=== PATIENT | female | born 1930 | race Caucasian/White ===

== ENCOUNTER → 2016-07-09 | Outpatient (CLI) | payer MEDICARE, MEDICAID ==
[~2016-07-09] MED LIST: ACTOS 15MG TAB15 MG PO; ACTOS15 MG PO; ACUVAIL 0.4 ML0.4 ML; ARTIFICIAL TEAR15 M7 OP; ASPIR-LOW81 MG PO; ASPIR-LOX325 MG PO; ASPIRIN 81M81 MG/TA2 PO; ASPIRIN E.C. 8181 MG PO; ATIVAN 0.50.5 MG/TAB PO; B-121000 MCG IM; CARAFATE 1GM1 G PO; CEFTIN500 MG PO; COLACE 100100 MG/CAP PO; CYANOCOBAL1000 MCG/1 IM; CYANOCOBAL1000 MCG/2 IM; DESYREL 100MG100 MG PO; DESYREL 50MG50 MG PO; DOMPERIDONE PO; DOMPERIDONE10 MG/CAP PO; FLONASEALLERGY NS; FOSAMAX 70MG TA70 MG PO; GLIPIZIDE2.5 MG PO; GLUCOPHAGE1000 MG PO; GLUCOTROL 5M5 MG/TAB PO; GLUCOTROL XL2.5 MG PO; GLUCOTROL XL5 MG/TAB PO; HCTZ 25MG TAB25 MG PO; KLOR-CON M2020 MEQ PO; KLOR-CON20 MEQ PO; LASIX 20MG TABL20 MG PO; LEVOTHYROXIN0.112 MG PO; LEVOXYL0.1 MG PO; LEVOXYL0.125 MG PO; LISINOPRIL20 MG PO; MAALOX MAX + ANT1 ML PO; MACROBID 1100 MG/CAP PO; MILK OF MA400 MG/5 M PO; MILK OF MA400 MG/52 PO; MIRALAX 17GM PK1 PKT PO; MIRALAX PA17 GM/Dose PO; MOTRIN 800800 MG/TAB PO; NEURONTIN100 MG/CAP PO; NEXIUM 40MG40 MG PO; NITROSTAT0.4 MG SL; NITROSTAT0.4 MG/TAB SL; NORCO 325 MG-101 TAB PO; NORCO 325 MG-51 TAB PO; NORCO 325 MG-7.1 TAB PO; OCUFLOX 10 ML10 ML OP; OMEPRAZOLE D/R20 MG PO; OMNICEF 300MG300 MG PO; PEPCID 20MG TAB20 MG PO; PERI-COLACE 501 TAB PO; PHENERGAN W/CO120 ML PO; PRAVACHOL 40MG40 MG PO; PRAVASTATIN40 MG PO; PREDNISONE; PRILOSEC 20MG20 MG PO; PROTONIX 40MG T40 MG PO; REGLAN 10MG10 MG/TAB PO; RISPERDAL 0.20.25 MG PO; SENNA8.6 MG PO; SERTRALINE HCL50 MG PO; SYNTHROID0.1 MG/TAB PO; SYNTHROID0.112 MG/T PO; SYNTHROID0.125 MG/T PO; TEARS NATURALE15 M1 OP; TIROSINT75 MCG PO; TRADJENTA5 MG PO; VESICARE 5MG5 MG PO; VICODIN 5/5001 UDTAB PO; VITAMIN D1000 IU PO; VITAMIN D31000 I1 PO; VITAMIN D3400 IU PO; ZOFRAN 4MG T4 MG/TAB PO; ZOLOFT 25MG25 MG PO; ZOLOFT 50MG50 MG PO; ZOLOFT50 MG PO; ZOLPIDEM5 MG PO
[2016-07-09 17:42] LABS: CALCIUM 8.8 mg/dL (8.4-10.2); CREATININE, serum 1.32 mg/dL (0.52-1.25); POTASSIUM 4.1 mmol/L (3.4-5.0)
== END ==
LOC: ZCOL.LAB 17:01 → COL.LAB 17:01
PROVIDERS: Internal Medicine
DX: F32.89 Other specified depressive episodes (principal)

== ENCOUNTER → 2016-07-25 | Outpatient (CLI) | payer MEDICARE, MEDICAID ==
[2016-07-25 15:02] LABS: CALCIUM 8.9 mg/dL (8.4-10.2); CREATININE, serum 1.47 mg/dL (0.52-1.25); POTASSIUM 4.2 mmol/L (3.4-5.0)
== END ==
LOC: ZCOL.LAB 14:43
PROVIDERS: Internal Medicine
DX: E11.9 Type 2 diabetes mellitus without complications (principal)

== ENCOUNTER → 2016-08-14 | Outpatient (CLI) | payer MEDICARE, MEDICAID | LOC: MC.RAD 15:08 | DX: Z12.31 Encounter for screening mammogram for malignant neoplasm of breast (principal); Z85.3 Personal history of malignant neoplasm of breast; Z90.12 Acquired absence of left breast and nipple; Z80.3 Family history of malignant neoplasm of breast | CPT/HCPCS: G0202 ==

== ENCOUNTER 2016-08-21 15:22 | Emergency (ER) | payer MEDICARE, MEDICAID ==
[2009-05-05 12:18] VITALS: BP 118/64
[~2016-08-21] VITALS: Ht 165.1 cm; Wt 75.0 kg
[2016-08-21 15:24] VITALS: TEMP 99
[2016-08-21 16:44] LABS: BASO % 0.6 % (0.0-2.0); EOS # 0.2 (0.0-0.7); EOS % 3.4 % (0-4.0); GRAN # 2.9 (1.4-6.5); GRAN % 54.3 % (42.2-75.2); HEMATOCRIT 31.3 % (37.0-47.0); HEMOGLOBIN 10.4 g/dl (12.5-16.0); LYMPH # 1.6 (1.2-3.4); LYMPH % 31.2 % (20.0-51.0); MEAN CELL VOLUME 98 fl (80.0-100.0); MEAN CORPUSCULAR HEMOGLOBIN 33 pg (27.0-31.0); MEAN CORPUSCULAR HGB CONC 33 g/dl (33.0-37.0); MEAN PLATELET VOLUME 9.1 fl (7.4-10.4); MONO # 0.5 (0.1-0.6); MONO % 10.1 % (1.7-9.3); PLATELET COUNT 227 K/mm3 (130-400); RED BLOOD COUNT 3.19 M/mm3 (4.10-5.30); REDCELL DISTRIBUTION WIDTH-CV 12.2 % (11.5-14.5); WHITE BLOOD COUNT 5.3 K/mm3 (4.8-10.8)
[2016-08-21 16:48] LABS: INR 1.1 (0.8-3.0); PROTHROMBIN TIME 11.8 SECONDS (9.7-12.8)
[2016-08-21 16:58] LABS: ADJUSTED CALCIUM 9.5 mg/dL (8.4-10.2); ALANINE AMINOTRANSFERASE 21 U/L (9-52); ALBUMIN 3.5 gm/dL (3.5-5.0); ALKALINE PHOSPHATASE 109 U/L (50-136); ANION GAP 10 mmol/L (7-16); BILIRUBIN,TOTAL 0.6 mg/dL (0.0-1.0); BLOOD UREA NITROGEN 31 mg/dL (7-17); CALCIUM 9.1 mg/dL (8.4-10.2); CARBON DIOXIDE 26 mmol/L (22-30); CHLORIDE 102 mmol/L (98-107); CREATININE, serum 1.42 mg/dL (0.52-1.25); GLUCOSE 176 mg/dL (74-106); LIPASE 12 U/L (23-300); POTASSIUM 4.4 mmol/L (3.4-5.0); SODIUM 137 mmol/L (137-145); TOTAL PROTEIN 6.4 gm/dL (6.4-8.2)
[2016-08-21 16:59] LABS: C-REACTIVE PROTEIN < 0.5 mg/dL (0.0-0.9)
[2016-08-21 17:07] LABS: TROPONIN-I 0.012 ng/mL (0.000-0.034)
[2016-08-21 18:00] VITALS: BP 128/87; PULSE 84
== END 2016-08-21 18:06 | disposition home or self-care (01) ==
LOC: COL.ER 15:22
PROVIDERS: Emergency Medicine
DX: R07.9 Chest pain, unspecified (principal); M79.605 Pain in left leg; M79.604 Pain in right leg; I48.91 Unspecified atrial fibrillation; G89.29 Other chronic pain

== ENCOUNTER → 2016-08-23 | Outpatient (CLI) | payer MEDICARE, MEDICAID | LOC: ZCOL.LAB 20:07 | DX: D51.8 Other vitamin B12 deficiency anemias (principal) ==

== ENCOUNTER → 2016-08-29 | Outpatient (CLI) | payer MEDICARE, MEDICAID | LOC: ZCOL.LAB 10:40 | PROVIDERS: Internal Medicine | DX: E78.4 Other hyperlipidemia (principal) ==

== ENCOUNTER → 2016-09-03 | Outpatient (CLI) | payer MEDICARE, MEDICAID ==
[2016-09-03 22:06] LABS: PH 5 (5-8); SQUAMOUS EPITHELIAL 0-2 /hpf; URINE APPEARANCE Hazy; URINE BACTERIA Rare /hpf; URINE BILIRUBIN Negative (NEGATIVE); URINE BLOOD Negative (NEGATIVE); URINE COLOR Yellow; URINE GLUCOSE Negative (NEGATIVE); URINE KETONE Negative (NEGATIVE); URINE WBC 20-50 /hpf
== END ==
LOC: ZCOL.LAB 19:30
PROVIDERS: Internal Medicine
DX: N39.0 Urinary tract infection, site not specified (principal)

== ENCOUNTER → 2016-09-04 | Outpatient (CLI) | payer MEDICARE, MEDICAID | LOC: ZCOL.LAB 21:30 | DX: N39.0 Urinary tract infection, site not specified (principal) ==

== ENCOUNTER → 2016-09-09 | Outpatient (CLI) | payer MEDICARE, MEDICAID ==
[2016-09-09 16:13] LABS: POTASSIUM 4.3 mmol/L (3.4-5.0)
== END ==
LOC: ZCOL.LAB 15:34
PROVIDERS: Internal Medicine
DX: N18.9 Chronic kidney disease, unspecified (principal)

== ENCOUNTER → 2016-09-18 | Outpatient (CLI) | payer MEDICARE, MEDICAID | LOC: ZCOL.LAB 11:53 | DX: E16.1 Other hypoglycemia (principal) ==

== ENCOUNTER → 2016-12-10 | Outpatient (CLI) | payer MEDICARE, MEDICAID ==
[2016-12-10 20:49] LABS: POTASSIUM 4.2 mmol/L (3.4-5.0)
== END ==
LOC: ZCOL.LAB 20:02
PROVIDERS: Internal Medicine
DX: E11.9 Type 2 diabetes mellitus without complications (principal)

== ENCOUNTER → 2016-12-17 | Outpatient (CLI) | payer MEDICARE, MEDICAID | LOC: ZCOL.LAB 04:00 | DX: E11.9 Type 2 diabetes mellitus without complications (principal) ==

== ENCOUNTER → 2017-02-12 | Outpatient (CLI) | payer MEDICARE, MEDICAID ==
[2017-02-12 04:34] LABS: CALCIUM 8.8 mg/dL (8.4-10.2); CREATININE, serum 1.71 mg/dL (0.52-1.25); POTASSIUM 4.3 mmol/L (3.4-5.0)
== END ==
LOC: ZCOL.LAB 04:00
PROVIDERS: Internal Medicine
DX: N18.9 Chronic kidney disease, unspecified (principal)

== ENCOUNTER → 2017-03-03 | Outpatient (CLI) | payer MEDICARE, MEDICAID ==
[2017-03-03 11:53] LABS: PH 5 (5-8); SQUAMOUS EPITHELIAL 0-2 /hpf; URINE APPEARANCE Hazy; URINE BACTERIA Rare /hpf; URINE BILIRUBIN Negative (NEGATIVE); URINE BLOOD Negative (NEGATIVE); URINE COLOR Yellow; URINE GLUCOSE Negative (NEGATIVE); URINE KETONE Negative (NEGATIVE); URINE RBC 0-2 /hpf; URINE UROBILINOGEN Negative (NEGATIVE); URINE WBC >50 /hpf
== END ==
LOC: ZCOL.LAB 11:34
PROVIDERS: Internal Medicine
DX: E11.9 Type 2 diabetes mellitus without complications (principal); R44.3 Hallucinations, unspecified

== ENCOUNTER → 2017-03-12 | Outpatient (CLI) | payer MEDICARE, MEDICAID ==
[~2017-03-12] MED LIST changes: +CORRECTIVE LAXAT5 MG PO; +CYANOCOBAL1000 MCG/M IM; +DESYREL DIVIDO150 M1 PO; +FENTANYL 25 MCG TD; +FERROUS SU325 MG/TAB PO; +GENTLE LAXATIVE5 MG PO; +KENALOG DENTAL P5 GM DT; +LEXAPRO 10MG10 MG PO; +LEXAPRO 5MG5 MG PO; +LYRICA 50MG CAP50 MG PO; +MULTI VITAMINS1 TAB PO; +MYRBETR25MG PO; +NITRO-DUR0.4 MG/PAT TD; +PLAVIX 75MG TAB75 MG PO; +PRIL40 PO; +REFRESH TEARS 330 ML OP; +ROLAIDS 675 MG-1 CT2 PO; +SENOKOT S 50 MG1 TAB PO; +TYLENOL 325MG325 MG PO; +VITAMIN C500 MG PO
== END ==
LOC: ZCOL.LAB 12:35
PROVIDERS: Internal Medicine
DX: F32.9 Major depressive disorder, single episode, unspecified (principal)

== ENCOUNTER → 2017-03-14 | Outpatient (CLI) | payer MEDICARE, MEDICAID ==
[~2017-03-14] MED LIST changes: -CORRECTIVE LAXAT5 MG PO; -CYANOCOBAL1000 MCG/M IM; -DESYREL DIVIDO150 M1 PO; -FENTANYL 25 MCG TD; -FERROUS SU325 MG/TAB PO; -GENTLE LAXATIVE5 MG PO; -KENALOG DENTAL P5 GM DT; -LEXAPRO 10MG10 MG PO; -LEXAPRO 5MG5 MG PO; -LYRICA 50MG CAP50 MG PO; -MULTI VITAMINS1 TAB PO; -MYRBETR25MG PO; -NITRO-DUR0.4 MG/PAT TD; -PLAVIX 75MG TAB75 MG PO; -PRIL40 PO; -REFRESH TEARS 330 ML OP; -ROLAIDS 675 MG-1 CT2 PO; -SENOKOT S 50 MG1 TAB PO; -TYLENOL 325MG325 MG PO; -VITAMIN C500 MG PO
== END ==
LOC: ZCOL.LAB 15:11
DX: Z01.89 Encounter for other specified special examinations (principal)

== ENCOUNTER → 2017-03-30 | Outpatient (CLI) | payer MEDICARE, MEDICAID ==
[2017-03-30 08:47] LABS: BASO % 0.7 % (0.0-2.0); EOS # 0.4 (0.0-0.7); EOS % 6.3 % (0-4.0); GRAN # 2.7 (1.4-6.5); HEMATOCRIT 30.2 % (37.0-47.0); HEMOGLOBIN 9.8 g/dl (12.5-16.0); LYMPH # 1.9 (1.2-3.4); LYMPH % 33.5 % (20.0-51.0); MEAN CELL VOLUME 100 fl (80.0-100.0); MEAN CORPUSCULAR HEMOGLOBIN 32 pg (27.0-31.0); MEAN CORPUSCULAR HGB CONC 33 g/dl (33.0-37.0); MEAN PLATELET VOLUME 10.2 fl (7.4-10.4); MONO # 0.6 (0.1-0.6); MONO % 10.3 % (1.7-9.3); PLATELET COUNT 223 K/mm3 (130-400); RED BLOOD COUNT 3.02 M/mm3 (4.10-5.30); REDCELL DISTRIBUTION WIDTH-CV 13.5 % (11.5-14.5); WHITE BLOOD COUNT 5.6 K/mm3 (4.8-10.8)
[2017-03-30 08:50] LABS: POTASSIUM 4.4 mmol/L (3.4-5.0)
[2017-03-30 09:21] LABS: THYROID STIMULATING HORMONE 1.29 uIU/mL (0.465-4.680)
== END ==
LOC: ZCOL.LAB 08:25
PROVIDERS: Internal Medicine
DX: N18.9 Chronic kidney disease, unspecified (principal); E03.9 Hypothyroidism, unspecified; I10 Essential (primary) hypertension

== ENCOUNTER → 2017-05-02 | Outpatient (CLI) | payer MEDICARE, MEDICAID | LOC: ZCOL.LAB 05:18 | DX: Z01.89 Encounter for other specified special examinations (principal) ==

== ENCOUNTER → 2017-05-02 | Outpatient (REF) ==
[2017-05-02 06:43] LABS: COLLECTION METHOD CLEAN CATCH
[2017-05-02 06:58] LABS: MUCOUS Present /lpf; PH 5 (5-8); URINE APPEARANCE Hazy; URINE BACTERIA None Seen /hpf; URINE BILIRUBIN Negative (NEGATIVE); URINE BLOOD 1+ (NEGATIVE); URINE COLOR Yellow; URINE GLUCOSE Negative (NEGATIVE); URINE KETONE Negative (NEGATIVE); URINE LEUKOCYTE ESTERASE 1+ (NEGATIVE); URINE PROTEIN(semi-quant) Negative (NEGATIVE); URINE UROBILINOGEN Negative (NEGATIVE)
== END ==
LOC: ZCOL.LAB 06:35
PROVIDERS: Internal Medicine
DX: Z01.89 Encounter for other specified special examinations (principal)

== ENCOUNTER → 2017-06-09 | Outpatient (CLI) | payer MEDICARE, MEDICAID ==
[~2017-06-09] MED LIST changes: +DESYREL DIVIDO150 M1 PO; +LEXAPRO 10MG10 MG PO; +PRIL40 PO
[2017-06-09 03:51] LABS: POTASSIUM 4.4 mmol/L (3.4-5.0)
== END ==
LOC: ZCOL.LAB 03:35
PROVIDERS: Internal Medicine
DX: N18.9 Chronic kidney disease, unspecified (principal)

== ENCOUNTER → 2017-06-11 | Outpatient (CLI) | payer MEDICARE, MEDICAID ==
[2017-06-11 20:23] LABS: HEMATOCRIT 33.7 % (37.0-47.0); HEMOGLOBIN 10.6 g/dl (12.5-16.0)
== END ==
LOC: ZCOL.LAB 15:53
PROVIDERS: Internal Medicine
DX: D55.1 Anemia due to other disorders of glutathione metabolism (principal)

== ENCOUNTER → 2017-07-28 | Outpatient (CLI) | payer MEDICARE, MEDICAID | LOC: ZCOL.LAB 11:59 | DX: E11.9 Type 2 diabetes mellitus without complications (principal) ==

== ENCOUNTER → 2017-08-06 | Outpatient (CLI) | payer MEDICARE, MEDICAID ==
[2017-08-06 04:00] LABS: BASO # 0.1 (0.0-0.2); EOS # 0.3 (0.0-0.7); EOS % 5.3 % (0-4.0); GRAN # 2.9 (1.4-6.5); GRAN % 57.4 % (42.2-75.2); LYMPH # 1.3 (1.2-3.4); LYMPH % 24.9 % (20.0-51.0); MEAN CELL VOLUME 102 fl (80.0-100.0); MEAN CORPUSCULAR HGB CONC 32 g/dl (33.0-37.0); MEAN PLATELET VOLUME 9.5 fl (7.4-10.4); MONO # 0.6 (0.1-0.6); PLATELET COUNT 243 K/mm3 (130-400); RED BLOOD COUNT 3.07 M/mm3 (4.10-5.30); REDCELL DISTRIBUTION WIDTH-CV 13.2 % (11.5-14.5)
[2017-08-06 04:02] LABS: HEMATOCRIT 31.4 % (37.0-47.0); HEMOGLOBIN 9.9 g/dl (12.5-16.0); MEAN CORPUSCULAR HEMOGLOBIN 32 pg (27.0-31.0)
[2017-08-06 04:10] LABS: CALCIUM 8.8 mg/dL (8.4-10.2); CREATININE, serum 1.59 mg/dL (0.52-1.25); POTASSIUM 4.9 mmol/L (3.4-5.0)
== END ==
LOC: ZCOL.LAB 01:31
PROVIDERS: Internal Medicine
DX: E11.9 Type 2 diabetes mellitus without complications (principal); R79.89 Other specified abnormal findings of blood chemistry

== ENCOUNTER → 2017-08-24 | Outpatient (REF) | LOC: ZCOL.LAB 16:15 | DX: J11.1 Influenza due to unidentified influenza virus with other respiratory manifestations (principal) ==

== ENCOUNTER → 2017-08-31 | Outpatient (REF) ==
[2017-08-31 07:08] LABS: CHOLESTEROL RISK RATIO 3.3
== END ==
LOC: ZCOL.LAB 06:49
PROVIDERS: Internal Medicine
DX: E78.5 Hyperlipidemia, unspecified (principal)

== ENCOUNTER 2017-09-12 16:49 | Emergency (ER) | payer MEDICARE, MEDICAID ==
[2009-05-05 12:18] VITALS: BP 118/64
[~2017-09-12] VITALS: Ht 144.8 cm; Wt 54.5 kg
[2017-09-12 16:51] VITALS: BP 147/74; PULSE 66; TEMP 97.1
[2017-09-12 17:26] LABS: BASO # 0.1 (0.0-0.2); EOS # 0.4 (0.0-0.7); EOS % 7.2 % (0-4.0); GRAN # 3.6 (1.4-6.5); GRAN % 60.4 % (42.2-75.2); LYMPH # 1.3 (1.2-3.4); LYMPH % 21.6 % (20.0-51.0); MEAN CELL VOLUME 99 fl (80.0-100.0); MEAN CORPUSCULAR HGB CONC 33 g/dl (33.0-37.0); MEAN PLATELET VOLUME 9.2 fl (7.4-10.4); MONO # 0.6 (0.1-0.6); MONO % 9.5 % (1.7-9.3); PLATELET COUNT 229 K/mm3 (130-400); RED BLOOD COUNT 3.09 M/mm3 (4.10-5.30); REDCELL DISTRIBUTION WIDTH-CV 13.2 % (11.5-14.5)
[2017-09-12 17:27] LABS: HEMATOCRIT 30.6 % (37.0-47.0); HEMOGLOBIN 10.1 g/dl (12.5-16.0); MEAN CORPUSCULAR HEMOGLOBIN 33 pg (27.0-31.0)
[2017-09-12 17:38] LABS: ALBUMIN 3.7 gm/dL (3.5-5.0); BILIRUBIN,TOTAL 0.2 mg/dL (0.0-1.0); C-REACTIVE PROTEIN 2.3 mg/dL (0.0-0.9); CALCIUM 8.7 mg/dL (8.4-10.2); CREATININE, serum 1.91 mg/dL (0.52-1.25); POTASSIUM 4.7 mmol/L (3.4-5.0); TOTAL PROTEIN 6.7 gm/dL (6.4-8.2)
== END 2017-09-12 20:00 | disposition home or self-care (01) ==
LOC: COL.ER 16:49
PROVIDERS: Family Medicine
DX: S40.012A Contusion of left shoulder, initial encounter (principal); S00.93XA Contusion of unspecified part of head, initial encounter; M17.12 Unilateral primary osteoarthritis, left knee; R40.2412 Glasgow coma scale score 13-15, at arrival to emergency department; Z85.3 Personal history of malignant neoplasm of breast; Z87.09 Personal history of other diseases of the respiratory system; Z79.84 Long term (current) use of oral hypoglycemic drugs; W19.XXXA Unspecified fall, initial encounter; Y92.129 Unspecified place in nursing home as the place of occurrence of the external cause
CPT/HCPCS: J2405; J3010; J7030

== ENCOUNTER → 2017-09-18 | Outpatient (REF) ==
[2017-09-18 13:49] LABS: CALCIUM 8.2 mg/dL (8.4-10.2); CREATININE, serum 1.61 mg/dL (0.52-1.25); MAGNESIUM 1.8 mg/dL (1.6-2.3); POTASSIUM 4.7 mmol/L (3.4-5.0)
== END ==
LOC: ZCOL.LAB 12:48
PROVIDERS: Internal Medicine
DX: N18.9 Chronic kidney disease, unspecified (principal)

== ENCOUNTER → 2017-10-12 | Outpatient (CLI) | payer MEDICARE, MEDICAID ==
[2017-10-12 08:55] LABS: BASO # 0.1 (0.0-0.2); EOS # 0.4 (0.0-0.7); EOS % 8.6 % (0-4.0); GRAN # 2.8 (1.4-6.5); GRAN % 54.6 % (42.2-75.2); HEMATOCRIT 28.4 % (37.0-47.0); HEMOGLOBIN 9.2 g/dl (12.5-16.0); LYMPH # 1.2 (1.2-3.4); LYMPH % 23.1 % (20.0-51.0); MEAN CELL VOLUME 100 fl (80.0-100.0); MEAN CORPUSCULAR HEMOGLOBIN 32 pg (27.0-31.0); MEAN CORPUSCULAR HGB CONC 32 g/dl (33.0-37.0); MEAN PLATELET VOLUME 9.6 fl (7.4-10.4); MONO # 0.6 (0.1-0.6); MONO % 12.5 % (1.7-9.3); PLATELET COUNT 229 K/mm3 (130-400); RED BLOOD COUNT 2.85 M/mm3 (4.10-5.30); REDCELL DISTRIBUTION WIDTH-CV 13.8 % (11.5-14.5)
== END ==
LOC: ZCOL.LAB 08:45
PROVIDERS: Internal Medicine
DX: N18.9 Chronic kidney disease, unspecified (principal)

== ENCOUNTER → 2017-10-12 | Outpatient (CLI) | payer MEDICARE, MEDICAID | LOC: ZCOL.LAB 06:45 | DX: N18.9 Chronic kidney disease, unspecified (principal) ==

== ENCOUNTER → 2017-11-27 | Outpatient (REF) ==
[2017-11-27 18:03] LABS: COLLECTION METHOD CLEAN CATCH
[2017-11-27 18:13] LABS: PH 5 (5-8); SQUAMOUS EPITHELIAL 0-2 /hpf; URINE APPEARANCE Hazy; URINE BACTERIA Rare /hpf; URINE BILIRUBIN Negative (NEGATIVE); URINE BLOOD 1+ (NEGATIVE); URINE COLOR Yellow; URINE GLUCOSE Negative (NEGATIVE); URINE KETONE Negative (NEGATIVE); URINE LEUKOCYTE ESTERASE Trace (NEGATIVE); URINE NITRATE Positive (NEGATIVE); URINE PROTEIN(semi-quant) Negative (NEGATIVE); URINE RBC 0-2 /hpf; URINE UROBILINOGEN Negative (NEGATIVE)
== END ==
LOC: ZCOL.LAB 18:00
PROVIDERS: Internal Medicine
DX: Z01.89 Encounter for other specified special examinations (principal)

== ENCOUNTER 2017-12-07 15:27 | Emergency (ER) | payer MEDICARE, MEDICAID ==
[2009-05-05 12:18] VITALS: BP 118/64
[~2017-12-07] VITALS: Ht 142.2 cm; Wt 60.0 kg
[2017-12-07 15:46] VITALS: TEMP 97.2
[2017-12-07 16:17] LABS: BASO % 0.4 % (0.0-2.0); EOS % 12.8 % (0-4.0); GRAN # 4.9 (1.4-6.5); GRAN % 63.8 % (42.2-75.2); LYMPH # 0.8 (1.2-3.4); LYMPH % 10.6 % (20.0-51.0); MEAN CELL VOLUME 98 fl (80.0-100.0); MEAN CORPUSCULAR HGB CONC 32 g/dl (33.0-37.0); MEAN PLATELET VOLUME 9.1 fl (7.4-10.4); MONO # 0.9 (0.1-0.6); MONO % 11.9 % (1.7-9.3); PLATELET COUNT 253 K/mm3 (130-400); RED BLOOD COUNT 2.95 M/mm3 (4.10-5.30); REDCELL DISTRIBUTION WIDTH-CV 13.2 % (11.5-14.5)
[2017-12-07 16:22] LABS: PROTHROMBIN TIME 11.1 SECONDS (9.7-12.8)
[2017-12-07 16:25] LABS: HEMOGLOBIN 9.3 g/dl (12.5-16.0); MEAN CORPUSCULAR HEMOGLOBIN 32 pg (27.0-31.0); PARTIAL THROMBOPLASTIN TIME 33.5 SECONDS (26.0-37.0)
[2017-12-07 16:53] LABS: ALANINE AMINOTRANSFERASE 20 U/L (9-52); ALBUMIN 2.8 gm/dL (3.5-5.0); ALKALINE PHOSPHATASE 105 U/L (50-136); ANION GAP 11 mmol/L (7-16); AST,SGOT 13 U/L (15-37); BILIRUBIN,TOTAL 0.3 mg/dL (0.0-1.0); BLOOD UREA NITROGEN 35 mg/dL (7-17); CALCIUM 8.4 mg/dL (8.4-10.2); CARBON DIOXIDE 26 mmol/L (22-30); CHLORIDE 101 mmol/L (98-107); CREATININE, serum 1.54 mg/dL (0.52-1.25); GLUCOSE 151 mg/dL (74-106); SODIUM 137 mmol/L (137-145); TOTAL PROTEIN 5.7 gm/dL (6.4-8.2)
[2017-12-07] MEDS ORDERED: ASPIRIN 81M81 MG/TA2 PO (16:58)
[2017-12-07] MEDS ORDERED: TRADJENTA5 MG PO (16:59)
[2017-12-07] MEDS ORDERED: LASIX 20MG TABL20 MG PO (16:59)
[2017-12-07] MEDS ORDERED: ZOFRAN 4MG T4 MG/TAB PO ×2 (17:01→17:20)
[2017-12-07] MEDS ORDERED: NORCO 325 MG-7.1 TAB PO (17:03)
[2017-12-07] MEDS ORDERED: FENTANYL 25 MCG TD (17:12)
[2017-12-07 17:14] LABS: TROPONIN-I < 0.012 ng/mL (0.000-0.034)
[2017-12-07] MEDS ORDERED: PRILOSEC 20MG20 MG PO (17:15)
[2017-12-07] MEDS ORDERED: LEXAPRO 5MG5 MG PO (17:15)
[2017-12-07] MEDS ORDERED: SENOKOT S 50 MG1 TAB PO (17:16)
[2017-12-07] MEDS ORDERED: ATIVAN 0.50.5 MG/TAB PO (17:17)
[2017-12-07] MEDS ORDERED: DESYREL 50MG50 MG PO (17:18)
[2017-12-07] MEDS ORDERED: CYANOCOBAL1000 MCG/M IM (17:19)
[2017-12-07] MEDS ORDERED: ROLAIDS 675 MG-1 CT2 PO (17:20)
[2017-12-07 17:25] LABS: COLLECTION METHOD CLEAN CATCH
[2017-12-07] MEDS ORDERED: TYLENOL 325MG325 MG PO (17:26)
[2017-12-07] MEDS ORDERED: MIRALAX PA17 GM/Dose PO (17:27)
[2017-12-07] MEDS ORDERED: CORRECTIVE LAXAT5 MG PO (17:27)
[2017-12-07] MEDS ORDERED: NITRO-DUR0.4 MG/PAT TD (17:28)
[2017-12-07 17:37] LABS: PH 5 (5-8); SQUAMOUS EPITHELIAL 0-2 /hpf; URINE APPEARANCE Clear; URINE BACTERIA None Seen /hpf; URINE BILIRUBIN Negative (NEGATIVE); URINE BLOOD Negative (NEGATIVE); URINE COLOR Yellow; URINE GLUCOSE Negative (NEGATIVE); URINE KETONE Negative (NEGATIVE); URINE LEUKOCYTE ESTERASE Negative (NEGATIVE); URINE NITRATE Negative (NEGATIVE); URINE PROTEIN(semi-quant) Negative (NEGATIVE); URINE RBC 0-2 /hpf; URINE UROBILINOGEN Negative (NEGATIVE)
[2017-12-07 18:10] VITALS: BP 117/46; PULSE 67
== END 2017-12-07 18:10 | disposition home or self-care (01) ==
LOC: COL.ER 15:27
PROVIDERS: Family Medicine
DX: G89.29 Other chronic pain (principal); R07.89 Other chest pain; Z85.3 Personal history of malignant neoplasm of breast; Z79.82 Long term (current) use of aspirin; Z85.118 Personal history of other malignant neoplasm of bronchus and lung

== ENCOUNTER → 2017-12-09 | Outpatient (CLI) | payer MEDICARE, MEDICAID ==
[~2017-12-09] MED LIST changes: +CORRECTIVE LAXAT5 MG PO; +CYANOCOBAL1000 MCG/M IM; +FENTANYL 25 MCG TD; +LEXAPRO 5MG5 MG PO; +NITRO-DUR0.4 MG/PAT TD; +ROLAIDS 675 MG-1 CT2 PO; +SENOKOT S 50 MG1 TAB PO; +TYLENOL 325MG325 MG PO
[2017-12-09 14:32] LABS: COLLECTION METHOD CLEAN CATCH
[2017-12-09 14:43] LABS: MUCOUS Present /lpf; PH 5 (5-8); SQUAMOUS EPITHELIAL 0-2 /hpf; URINE APPEARANCE Hazy; URINE BACTERIA None Seen /hpf; URINE BILIRUBIN Negative (NEGATIVE); URINE BLOOD Negative (NEGATIVE); URINE COLOR Yellow; URINE GLUCOSE Negative (NEGATIVE); URINE KETONE Negative (NEGATIVE); URINE LEUKOCYTE ESTERASE Trace (NEGATIVE); URINE NITRATE Negative (NEGATIVE); URINE PROTEIN(semi-quant) Negative (NEGATIVE); URINE RBC 0-2 /hpf
== END ==
LOC: ZCOL.LAB 14:30
PROVIDERS: Internal Medicine
DX: N18.9 Chronic kidney disease, unspecified (principal)

== ENCOUNTER → 2017-12-24 | Outpatient (CLI) | payer MEDICARE, MEDICAID ==
[2017-12-24 16:38] LABS: COLLECTION METHOD CLEAN CATCH
[2017-12-24 16:53] LABS: BUDDING YEAST Present /hpf; MUCOUS Present /lpf; PH 5 (5-8); SQUAMOUS EPITHELIAL 0-2 /hpf; URINE APPEARANCE Cloudy; URINE BACTERIA Moderate /hpf; URINE BILIRUBIN Negative (NEGATIVE); URINE BLOOD 1+ (NEGATIVE); URINE COLOR Yellow; URINE GLUCOSE Negative (NEGATIVE); URINE KETONE Negative (NEGATIVE); URINE LEUKOCYTE ESTERASE 1+ (NEGATIVE); URINE NITRATE Negative (NEGATIVE); URINE PROTEIN(semi-quant) Negative (NEGATIVE); URINE UROBILINOGEN Negative (NEGATIVE)
== END ==
LOC: ZCOL.LAB 16:36
PROVIDERS: Internal Medicine
DX: N39.0 Urinary tract infection, site not specified (principal)

== ENCOUNTER → 2018-01-09 | Outpatient (CLI) | payer MEDICARE, MEDICAID ==
[2018-01-09 11:44] LABS: COLLECTION METHOD CLEAN CATCH
[2018-01-09 12:12] LABS: MUCOUS Present /lpf; PH 5 (5-8); SQUAMOUS EPITHELIAL 0-2 /hpf; URINE APPEARANCE Clear; URINE BACTERIA None Seen /hpf; URINE BILIRUBIN Negative (NEGATIVE); URINE BLOOD Negative (NEGATIVE); URINE COLOR Yellow; URINE GLUCOSE Negative (NEGATIVE); URINE KETONE Negative (NEGATIVE); URINE LEUKOCYTE ESTERASE Trace (NEGATIVE); URINE NITRATE Negative (NEGATIVE); URINE PROTEIN(semi-quant) Negative (NEGATIVE); URINE RBC 0-2 /hpf; URINE UROBILINOGEN Negative (NEGATIVE)
== END ==
LOC: ZCOL.LAB 11:21
PROVIDERS: Internal Medicine
DX: N18.9 Chronic kidney disease, unspecified (principal); R44.3 Hallucinations, unspecified

== ENCOUNTER → 2018-01-18 | Outpatient (CLI) | payer MEDICARE, MEDICAID | LOC: ZCOL.LAB 17:07 | DX: E11.9 Type 2 diabetes mellitus without complications (principal) ==

== ENCOUNTER → 2018-01-29 | Outpatient (REF) ==
[2018-01-29 15:04] LABS: BASO # 0.1 (0.0-0.2); EOS # 0.5 (0.0-0.7); EOS % 7.7 % (0-4.0); GRAN # 3.5 (1.4-6.5); GRAN % 52.7 % (42.2-75.2); HEMATOCRIT 31.6 % (37.0-47.0); HEMOGLOBIN 10.2 g/dl (12.5-16.0); LYMPH # 1.8 (1.2-3.4); MEAN CELL VOLUME 98 fl (80.0-100.0); MEAN CORPUSCULAR HEMOGLOBIN 32 pg (27.0-31.0); MEAN CORPUSCULAR HGB CONC 32 g/dl (33.0-37.0); MEAN PLATELET VOLUME 10.1 fl (7.4-10.4); MONO # 0.8 (0.1-0.6); MONO % 11.2 % (1.7-9.3); PLATELET COUNT 354 K/mm3 (130-400); RED BLOOD COUNT 3.22 M/mm3 (4.10-5.30); REDCELL DISTRIBUTION WIDTH-CV 14.2 % (11.5-14.5)
[2018-01-29 15:33] LABS: ALBUMIN 3.3 gm/dL (3.5-5.0); BILIRUBIN,TOTAL 0.3 mg/dL (0.0-1.0); CALCIUM 8.7 mg/dL (8.4-10.2); CREATININE, serum 1.34 mg/dL (0.52-1.25); POTASSIUM 4.9 mmol/L (3.4-5.0); TOTAL PROTEIN 6.7 gm/dL (6.4-8.2)
[2018-01-29 16:02] LABS: THYROID STIMULATING HORMONE 0.871 uIU/mL (0.465-4.680)
== END ==
LOC: ZCOL.LAB 14:57
PROVIDERS: Internal Medicine
DX: Z01.89 Encounter for other specified special examinations (principal)

== ENCOUNTER 2018-02-24 18:34 | Emergency (ER) | payer MEDICARE, MEDICAID ==
[2009-05-05 12:18] VITALS: BP 118/64
[~2018-02-24] VITALS: Ht 147.3 cm; Wt 57.7 kg
[2018-02-24 18:35] VITALS: TEMP 97.3
[2018-02-24] MEDS ORDERED: LEXAPRO 10MG10 MG PO (18:48)
[2018-02-24] MEDS ORDERED: GENTLE LAXATIVE5 MG PO (18:48)
[2018-02-24] MEDS ORDERED: DESYREL 50MG50 MG PO (18:50)
[2018-02-24] MEDS ORDERED: ATIVAN 0.50.5 MG/TAB PO (18:50)
[2018-02-24] MEDS ORDERED: KENALOG DENTAL P5 GM DT (18:51)
[2018-02-24] MEDS ORDERED: LEVOXYL0.1 MG PO (18:51)
[2018-02-24] MEDS ORDERED: CYANOCOBAL1000 MCG/1 IM ×2 (18:52→18:53)
[2018-02-24] MEDS ORDERED: NITROSTAT0.4 MG/TAB SL (19:08)
[2018-02-24] MEDS ORDERED: MACROBID 1100 MG/CAP PO (19:14)
[2018-02-24] MEDS ORDERED: VITAMIN C500 MG PO (19:14)
[2018-02-24] MEDS ORDERED: MULTI VITAMINS1 TAB PO ×2 (19:15)
[2018-02-24] MEDS ORDERED: REFRESH TEARS 330 ML OP (19:16)
[2018-02-24 19:30] VITALS: BP 138/76; PULSE 93
== END 2018-02-24 19:56 | disposition home or self-care (01) ==
LOC: COL.ER 18:34
DX: S50.02XA Contusion of left elbow, initial encounter (principal); S80.12XA Contusion of left lower leg, initial encounter; E11.9 Type 2 diabetes mellitus without complications; I10 Essential (primary) hypertension; E78.5 Hyperlipidemia, unspecified; I25.10 Atherosclerotic heart disease of native coronary artery without angina pectoris; Z79.82 Long term (current) use of aspirin; Z98.890 Other specified postprocedural states; W06.XXXA Fall from bed, initial encounter; Y92.129 Unspecified place in nursing home as the place of occurrence of the external cause

== ENCOUNTER → 2018-03-14 | Outpatient (CLI) | payer MEDICARE, MEDICAID ==
[~2018-03-14] MED LIST changes: +GENTLE LAXATIVE5 MG PO; +KENALOG DENTAL P5 GM DT; +MULTI VITAMINS1 TAB PO; +REFRESH TEARS 330 ML OP; +VITAMIN C500 MG PO
== END ==
LOC: ZCOL.LAB 15:05
DX: E03.9 Hypothyroidism, unspecified (principal)

== ENCOUNTER 2018-03-19 19:12 | Emergency (ER) | payer MEDICARE, MEDICAID ==
[2009-05-05 12:18] VITALS: BP 118/64
[~2018-03-19] VITALS: Ht 142.2 cm; Wt 56.4 kg
[2018-03-19 20:55] LABS: BASO % 0.5 % (0.0-2.0); EOS # 0.2 (0.0-0.7); EOS % 2.4 % (0-4.0); GRAN # 5.7 (1.4-6.5); GRAN % 74.4 % (42.2-75.2); HEMATOCRIT 26.8 % (37.0-47.0); HEMOGLOBIN 8.6 g/dl (12.5-16.0); LYMPH # 0.8 (1.2-3.4); LYMPH % 10.5 % (20.0-51.0); MEAN CELL VOLUME 98 fl (80.0-100.0); MEAN CORPUSCULAR HEMOGLOBIN 32 pg (27.0-31.0); MEAN CORPUSCULAR HGB CONC 32 g/dl (33.0-37.0); MONO # 0.9 (0.1-0.6); MONO % 11.8 % (1.7-9.3); PLATELET COUNT 423 K/mm3 (130-400); RED BLOOD COUNT 2.73 M/mm3 (4.10-5.30); REDCELL DISTRIBUTION WIDTH-CV 14.1 % (11.5-14.5)
[2018-03-19 21:07] LABS: ALBUMIN 3.1 gm/dL (3.5-5.0); BILIRUBIN,TOTAL 0.4 mg/dL (0.0-1.0); C-REACTIVE PROTEIN 5.3 mg/dL (0.0-0.9); CALCIUM 8.2 mg/dL (8.4-10.2); CREATININE, serum 1.39 mg/dL (0.52-1.25); POTASSIUM 3.8 mmol/L (3.4-5.0); TOTAL PROTEIN 6.7 gm/dL (6.4-8.2)
[2018-03-19 21:08] LABS: COLLECTION METHOD CATHETER
[2018-03-19 21:14] LABS: PH 5 (5-8); SQUAMOUS EPITHELIAL 0-2 /hpf; URINE APPEARANCE Clear; URINE BACTERIA None Seen /hpf; URINE BILIRUBIN Negative (NEGATIVE); URINE BLOOD Negative (NEGATIVE); URINE COLOR Yellow; URINE GLUCOSE Negative (NEGATIVE); URINE KETONE Negative (NEGATIVE); URINE LEUKOCYTE ESTERASE Negative (NEGATIVE); URINE NITRATE Negative (NEGATIVE); URINE PROTEIN(semi-quant) Negative (NEGATIVE); URINE RBC 0-2 /hpf; URINE UROBILINOGEN Negative (NEGATIVE)
[2018-03-19 21:27] VITALS: TEMP 98.6
[2018-03-19 22:30] VITALS: BP 130/92; PULSE 95
== END 2018-03-19 22:30 | disposition home or self-care (01) ==
LOC: COL.ER 19:12
PROVIDERS: Emergency Medicine
DX: L76.32 Postprocedural hematoma of skin and subcutaneous tissue following other procedure (principal); I10 Essential (primary) hypertension; Z79.82 Long term (current) use of aspirin
CPT/HCPCS: J7030

== ENCOUNTER → 2018-03-26 | Outpatient (CLI) | payer MEDICARE, MEDICAID | LOC: ZCOL.LAB 14:17 | DX: Z01.89 Encounter for other specified special examinations (principal) ==

== ENCOUNTER → 2018-03-26 | Outpatient (CLI) | payer MEDICARE, MEDICAID | LOC: ZCOL.LAB 14:03 | DX: S80.12XA Contusion of left lower leg, initial encounter (principal); L08.9 Local infection of the skin and subcutaneous tissue, unspecified ==

== ENCOUNTER → 2018-03-30 | Outpatient (REF) ==
[2018-03-30 11:34] LABS: BASO # 0.1 (0.0-0.2); BASO % 0.7 % (0.0-2.0); EOS # 0.3 (0.0-0.7); EOS % 3.6 % (0-4.0); GRAN # 4.9 (1.4-6.5); GRAN % 68.4 % (42.2-75.2); LYMPH # 1.2 (1.2-3.4); LYMPH % 16.4 % (20.0-51.0); MEAN CELL VOLUME 99 fl (80.0-100.0); MEAN CORPUSCULAR HGB CONC 32 g/dl (33.0-37.0); MEAN PLATELET VOLUME 9.1 fl (7.4-10.4); MONO # 0.8 (0.1-0.6); MONO % 10.5 % (1.7-9.3); PLATELET COUNT 384 K/mm3 (130-400); RED BLOOD COUNT 2.51 M/mm3 (4.10-5.30); REDCELL DISTRIBUTION WIDTH-CV 14.7 % (11.5-14.5)
[2018-03-30 11:37] LABS: HEMATOCRIT 24.8 % (37.0-47.0); HEMOGLOBIN 7.9 g/dl (12.5-16.0); MEAN CORPUSCULAR HEMOGLOBIN 31 pg (27.0-31.0)
== END ==
LOC: ZCOL.LAB 11:22
PROVIDERS: Internal Medicine
DX: N18.9 Chronic kidney disease, unspecified (principal)

== ENCOUNTER → 2018-05-19 | Outpatient (CLI) | payer MEDICARE, MEDICAID | LOC: ZCOL.LAB 13:16 | DX: E11.9 Type 2 diabetes mellitus without complications (principal) ==

== ENCOUNTER → 2018-06-10 | Outpatient (CLI) | payer MEDICARE, MEDICAID ==
[2018-06-10 17:13] LABS: BASO # 0.1 (0.0-0.2); BASO % 1.1 % (0.0-2.0); EOS # 0.5 (0.0-0.7); EOS % 8.2 % (0-4.0); GRAN # 3.9 (1.4-6.5); GRAN % 60.6 % (42.2-75.2); LYMPH # 1.2 (1.2-3.4); LYMPH % 19.1 % (20.0-51.0); MEAN CELL VOLUME 99 fl (80.0-100.0); MEAN CORPUSCULAR HGB CONC 32 g/dl (33.0-37.0); MONO # 0.7 (0.1-0.6); MONO % 10.5 % (1.7-9.3); PLATELET COUNT 295 K/mm3 (130-400); REDCELL DISTRIBUTION WIDTH-CV 14.9 % (11.5-14.5)
[2018-06-10 17:15] LABS: HEMATOCRIT 30.6 % (37.0-47.0); HEMOGLOBIN 9.7 g/dl (12.5-16.0); MEAN CORPUSCULAR HEMOGLOBIN 31 pg (27.0-31.0)
[2018-06-10 17:22] LABS: ALBUMIN 3.2 gm/dL (3.5-5.0); BILIRUBIN,TOTAL 0.1 mg/dL (0.0-1.0); CALCIUM 8.6 mg/dL (8.4-10.2); CREATININE, serum 1.55 mg/dL (0.52-1.25); POTASSIUM 3.9 mmol/L (3.4-5.0); TOTAL PROTEIN 6.5 gm/dL (6.4-8.2)
== END ==
LOC: ZCOL.LAB 17:08
PROVIDERS: Internal Medicine
DX: E11.9 Type 2 diabetes mellitus without complications (principal); Z85.3 Personal history of malignant neoplasm of breast

== ENCOUNTER → 2018-06-18 | Outpatient (CLI) | payer MEDICARE, MEDICAID ==
[2018-06-18 18:59] LABS: IRON,SERUM 55 ug/dL (35-150)
[2018-06-18 19:09] LABS: TOTAL IRON BINDING CAPACITY 217 ug/dL (265-497)
[2018-06-18 19:37] LABS: FERRITIN 52 ng/mL (11-264)
== END ==
LOC: ZCOL.LAB 15:23
PROVIDERS: Internal Medicine
DX: E61.1 Iron deficiency (principal)

== ENCOUNTER → 2018-07-02 | Outpatient (REF) ==
[2018-07-02 10:16] LABS: HEMOGLOBIN 10.4 g/dl (12.5-16.0)
[2018-07-02 10:19] LABS: HEMATOCRIT 32.4 % (37.0-47.0)
== END ==
LOC: ZCOL.LAB 10:11
PROVIDERS: Internal Medicine
DX: Z01.89 Encounter for other specified special examinations (principal)

== ENCOUNTER 2018-07-30 02:47 | Emergency (ER) | payer MEDICARE, MEDICAID ==
[2009-05-05 12:18] VITALS: BP 118/64
[2018-07-30 02:48] VITALS: BP 152/70; TEMP 97.7
[2018-07-30] MEDS ORDERED: FERROUS SU325 MG/TAB PO (03:45)
[2018-07-30 05:22] VITALS: PULSE 60
== END 2018-07-30 05:22 | disposition home or self-care (01) ==
LOC: COL.ER 02:47
DX: S20.212A Contusion of left front wall of thorax, initial encounter (principal); E78.5 Hyperlipidemia, unspecified; I10 Essential (primary) hypertension; K21.9 Gastro-esophageal reflux disease without esophagitis; E11.9 Type 2 diabetes mellitus without complications; I25.10 Atherosclerotic heart disease of native coronary artery without angina pectoris; Z79.82 Long term (current) use of aspirin; W19.XXXA Unspecified fall, initial encounter; W22.8XXA Striking against or struck by other objects, initial encounter; Y92.121 Bathroom in nursing home as the place of occurrence of the external cause
CPT/HCPCS: A9284

== ENCOUNTER → 2018-08-13 | Outpatient (CLI) | payer MEDICARE, MEDICAID ==
[~2018-08-13] MED LIST changes: +FERROUS SU325 MG/TAB PO
[2018-08-13 15:57] LABS: BASO # 0.1 (0.0-0.2); EOS # 0.3 (0.0-0.7); GRAN # 3.7 (1.4-6.5); GRAN % 59.5 % (42.2-75.2); HEMOGLOBIN 10.3 g/dl (12.5-16.0); LYMPH # 1.4 (1.2-3.4); LYMPH % 22.6 % (20.0-51.0); MEAN CELL VOLUME 99 fl (80.0-100.0); MEAN CORPUSCULAR HEMOGLOBIN 32 pg (27.0-31.0); MEAN CORPUSCULAR HGB CONC 32 g/dl (33.0-37.0); MEAN PLATELET VOLUME 9.9 fl (7.4-10.4); MONO # 0.7 (0.1-0.6); MONO % 11.6 % (1.7-9.3); PLATELET COUNT 285 K/mm3 (130-400); RED BLOOD COUNT 3.27 M/mm3 (4.10-5.30); REDCELL DISTRIBUTION WIDTH-CV 14.2 % (11.5-14.5)
[2018-08-13 16:01] LABS: HEMATOCRIT 32.4 % (37.0-47.0)
== END ==
LOC: ZCOL.LAB 15:20
PROVIDERS: Internal Medicine
DX: N18.9 Chronic kidney disease, unspecified (principal)

== ENCOUNTER → 2018-08-31 | Outpatient (CLI) | payer MEDICARE, MEDICAID | LOC: ZCOL.LAB 08:47 | DX: E78.5 Hyperlipidemia, unspecified (principal) ==

== ENCOUNTER 2018-09-11 20:44 | Emergency (ER) | payer MEDICARE, MEDICAID ==
[2009-05-05 12:18] VITALS: BP 118/64
[2018-09-11 20:52] VITALS: BP 133/62; PULSE 63; TEMP 97.5
[2018-09-11 22:53] LABS: COLLECTION METHOD CATHETER
[2018-09-11 23:03] LABS: MUCOUS Present /lpf; PH 5 (5-8); SQUAMOUS EPITHELIAL 0-2 /hpf; URINE APPEARANCE Hazy; URINE BACTERIA Occasional /hpf; URINE BILIRUBIN Negative (NEGATIVE); URINE BLOOD Negative (NEGATIVE); URINE COLOR Yellow; URINE GLUCOSE Negative (NEGATIVE); URINE KETONE Negative (NEGATIVE); URINE LEUKOCYTE ESTERASE 2+ (NEGATIVE); URINE NITRATE Negative (NEGATIVE); URINE PROTEIN(semi-quant) Negative (NEGATIVE); URINE RBC 0-2 /hpf; URINE UROBILINOGEN Negative (NEGATIVE)
[2018-09-12 03:32] LABS: BASO % 0.4 % (0.0-2.0); EOS # 0.1 (0.0-0.7); EOS % 1.3 % (0-4.0); GRAN # 7.6 (1.4-6.5); GRAN % 85.1 % (42.2-75.2); HEMOGLOBIN 10.3 g/dl (12.5-16.0); LYMPH # 0.6 (1.2-3.4); LYMPH % 6.3 % (20.0-51.0); MEAN CELL VOLUME 96 fl (80.0-100.0); MEAN CORPUSCULAR HEMOGLOBIN 31 pg (27.0-31.0); MEAN CORPUSCULAR HGB CONC 32 g/dl (33.0-37.0); MEAN PLATELET VOLUME 9.2 fl (7.4-10.4); MONO # 0.5 (0.1-0.6); MONO % 6.1 % (1.7-9.3); PLATELET COUNT 280 K/mm3 (130-400)
[2018-09-12 03:34] LABS: HEMATOCRIT 31.8 % (37.0-47.0)
[2018-09-12 03:53] LABS: ALBUMIN 3.4 gm/dL (3.5-5.0); BILIRUBIN,TOTAL 0.5 mg/dL (0.0-1.0); CALCIUM 8.6 mg/dL (8.4-10.2); CREATININE, serum 1.49 mg/dL (0.52-1.25); POTASSIUM 4.4 mmol/L (3.4-5.0); TOTAL PROTEIN 6.9 gm/dL (6.4-8.2)
[2018-09-12] MEDS ORDERED: NORCO 325 MG-51 TAB PO (05:27)
[2018-09-12] MEDS ORDERED: OMNICEF 300MG300 MG PO (05:29)
== END 2018-09-12 06:00 | disposition home or self-care (01) ==
LOC: COL.ER 20:44
PROVIDERS: Emergency Medicine
DX: M48.54XA Collapsed vertebra, not elsewhere classified, thoracic region, initial encounter for fracture (principal); C34.90 Malignant neoplasm of unspecified part of unspecified bronchus or lung; N39.0 Urinary tract infection, site not specified; I10 Essential (primary) hypertension; E78.5 Hyperlipidemia, unspecified; Z79.82 Long term (current) use of aspirin; Z87.81 Personal history of (healed) traumatic fracture; W00.0XXA Fall on same level due to ice and snow, initial encounter; Y92.009 Unspecified place in unspecified non-institutional (private) residence as the place of occurrence of the external cause
CPT/HCPCS: J0696